=== PATIENT | female | born 1935 | race Caucasian/White ===

== ENCOUNTER → 2016-04-30 | Day surgery (SDC) | payer OTHER, MEDICARE ==
[~2016-04-30] MED LIST: DEXAMETHASONE 4 MG/ML VIAL ONE; GLUCAGON,HUMAN RECOMBINANT 1 MG VIAL ONE; GLYCOPYRROLATE 0.2 MG/1 ML VIAL ONE; HYDROCODONE/APAP 5/325 TAB ONE; HYDROCODONE/APAP 5/325 TAB PO PRN; IOTHALAMATE MEG (CONRAY) 50 ML VIAL IV ONE; LIDOCAINE 2% 5 ML SDV ONE; NEOSTIGMINE METHYLSULFATE 5 MG/5 ML SYR ONE; PHENYLEPHRINE HCL 100 MCG/ML SYR ONE; PROPOFOL 200 MG/20 ML VIAL ONE; PROPOFOL/EMULSION 500 MG/50 ML BOTTLE IV ONE; ROCURONIUM 50 MG/5 ML VIAL ONE; fentaNYL 100 MCG/2 ML INJ ONE; levOFLOXACIN 500 MG/DEXTROSE 100 ML IV ONE
--- NOTE | 2016-04-30 13:46 | GPN ---
DATE OF PROCEDURE: 04/30/2016 PROCEDURE: Colonoscopy with biopsy. INDICATION: The patient is a 80-year-old female who presents with complaints of lower quadrant abdo merlin pain as well as episodes of diarrhea. The patient is to have further evaluation. CONSENT: Risks, benefits, and alternatives of the procedure were discussed in great detail with the patient. Risks of infection, bleeding, perforation, sedation were discussed. All questions answer ed. Informed consent was obtained. MEDICATIONS: Propofol. Please see anesthesiology record for details. ESTIMATED BLOOD LOSS: Insignificant. COLONOSCOPIC EVALUATION: A rectal exam was performed, and no palpable masses were felt. The scope was introduced into the rectum and advanced to cecum where the ileocecal valve and appendiceal orifi ce were seen. The quality of prep was just fair with thick liquid stool chunks seen throughout the colon. The terminal ilium was intubated. It was normal in appearance. Biopsies were taken. The colonic mucosa was carefully examined on both insertion and withdrawal of the scope. Aggressive suctioning and flushing were utilized. No obvious polyps or mass lesions were seen. Random biopsi es were taken throughout the colon. IMPRESSION: 1. Normal terminal ileum, status post biopsy. 2. Normal colonoscopy, status post biopsy. 3. Just a fair prep. RECOMMENDATIONS: 1. Follow up on biopsy results. 2. Will need repeat surveillance depending upon results of prior colonoscopy. /[id number]/MODL
--- NOTE | 2016-04-30 14:57 | GPN ---
DATE OF PROCEDURE: 04/30/2016 PROCEDURE: Esophagogastroscopy with biopsy, endoscopic ultrasound. INDICATION: The patient is a 80-year-old female, who presents for evaluation of right upper quadran t abdominal pain, as well as abnormal imaging. She had a CT scan performed on 04/11/2016, and was n oted to have a dilated common bile duct, as well as a dilated main pancreatic duct. She presents fo r further evaluation. CONSENT: Risks, benefits, and alternatives of the procedure were discussed in great detail with the patient. Risk of infection, bleeding, perforation, sedation, and pancreatitis were discussed. All questions answered. Informed consent obtained. MEDICATIONS: General anesthesia. Please see anesthesiology record for details. ESTIMATED BLOOD LOSS: Insignificant. ESOPHAGOGASTRODUODENOSCOPY EXAMINATION: The Olympus upper endoscope was introduced via the mouth an d advanced to the esophagus. The proximal and mid esophagus were normal in appearance. The patient had an irregular Z-line. This may represent short-segment of [place] esophagus. A biopsy was take n. The stomach was entered and closely examined, including retroflexed views of the angularis, cardia a nd fundus. The mucosa was noted to have a medium-sized hiatal hernia. Mucosa of the whole stomach was erythematous, moderately erythematous in a patchy distribution, and biopsies were taken. Multiple sessile diminutive polyps were seen along the greater curvature, and biopsies were taken. The duodenal bulb and second portion of the duodenum were normal in appearance. Biopsies were taken to rule out celiac sprue. ENDOSCOPIC ULTRASOUND EXAMINATION: Olympus linear echoendoscope was inserted in the mouth to second portion of the duodenum. The pancreas was carefully examined from the uncinate process to thetail, where the spleen was seen. The pancreatic duct was dilated, and the head of the pancreas measured approximately 2.5 mm. The pancreatic duct wall was hyperechoic, and hypoechoic foci were noted thro ughout the pancreas. The common bile duct was seen merging with the pancreatic duct. No mass lesion was seen. The dista l common bile duct measured approximately 1.7 mm. There was debris noted. No stenosis was obviousl y noted. No obvious liver lesions were seen. No suspicious periportal or peripancreatic or perigastric nodes were appreciated. IMPRESSION: 1. No mass lesion seen. 2. Dilated pancreatic duct with right upper quadrant abdominal pain with radiation to back. Sphinc ter of Oddi dysfunction, and significant debris was also noted in the duct. We will proceed with en doscopic retrograde cholangiopancreatography. 3. Gastritis, status post biopsy. 4. , status post biopsy. 5. Irregular Z-line, status post biopsy. RECOMMENDATIONS: 1. Follow up on biopsy results. 2. Proceed with endoscopic retrograde cholangiopancreatography. /[id number]/MODL
--- NOTE | 2016-04-30 15:57 | GPN ---
DATE OF PROCEDURE: 04/30/2016 PROCEDURE: sphincterotomy, extraction of debris. INDICATION: Ms. Awad is a 80-year-old female who presents with complaints of right upper quadrant with radiation to the back as well as abnormal imaging which revealed a significantly dilated commo n bile duct. She was referred for further evaluation. CONSENT: Risks, benefits, and alternatives of the procedure were discussed in great detail with the patient. Risk of infection, bleeding, perforation, sedation complications were discussed. All quest ions were answered. Informed consent was obtained. MEDICATIONS: General anesthesia. Please see anesthesiology notes for details. 500 mg IV x1. Of note, patient does have an allergy to NSAIDs, and indomethacin could not be given. ESTIMATED BLOOD LOSS: Insignificant. DESCRIPTION OF PROCEDURE: ERCP exam: The Olympus duodenoscope entered into the mouth and advanced t o the 2nd portion of the duodenum. Using a [employer] sphincterotome and a 0.035 inch wire, t he wire was then attempted to be passed into the common bile duct. It did go into the pancreatic juan carlos t, where minimal injection was made. After several attempts, a wire was advanced into the common bile duct and intrahepatics. The patient had a significantly dilated common bile duct. The ampulla did grasp the sphincterotome consistent w ith ampullary stenosis. A 1 cm biliary sphincterotomy was performed, and a balloon sweep was made wi th a 12 balloon with extraction of debris. IMPRESSION: 1. 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 2. Extraction of debris. RECOMMENDATIONS: 1. Clear liquid diet until tomorrow. 2. Ciprofloxacin 500 mg p.o. twice daily x3 days. 3. Follow up in the office in 6 weeks. /[id number]/MODL
== END | disposition home or self-care (01) ==
LOC: FSGY 10:14
PROVIDERS: ATTEND Internal Medicine Gastroenterology
DX: K29.70 Gastritis, unspecified, without bleeding (principal); K83.8 Other specified diseases of biliary tract; R10.11 Right upper quadrant pain; K21.9 Gastro-esophageal reflux disease without esophagitis; F11.20 Opioid dependence, uncomplicated
CPT/HCPCS: J1100; J1610; J1956; J2370; J2704; J2710; J3010; Q9961

== ENCOUNTER → 2017-11-26 | Outpatient (CLI) | payer OTHER, MEDICARE ==
[~2017-11-26] MED LIST changes: -DEXAMETHASONE 4 MG/ML VIAL ONE; -GLUCAGON,HUMAN RECOMBINANT 1 MG VIAL ONE; -GLYCOPYRROLATE 0.2 MG/1 ML VIAL ONE; -HYDROCODONE/APAP 5/325 TAB ONE; -HYDROCODONE/APAP 5/325 TAB PO PRN; +IOPAMIDOL (ISOVUE-M 200) 20 ML VIAL ONE; -IOTHALAMATE MEG (CONRAY) 50 ML VIAL IV ONE; +LIDOCAINE 1% 300 MG/30 ML SDV ONE; -LIDOCAINE 2% 5 ML SDV ONE; -NEOSTIGMINE METHYLSULFATE 5 MG/5 ML SYR ONE; -PHENYLEPHRINE HCL 100 MCG/ML SYR ONE; -PROPOFOL 200 MG/20 ML VIAL ONE; -PROPOFOL/EMULSION 500 MG/50 ML BOTTLE IV ONE; -ROCURONIUM 50 MG/5 ML VIAL ONE; -fentaNYL 100 MCG/2 ML INJ ONE; -levOFLOXACIN 500 MG/DEXTROSE 100 ML IV ONE
== END ==
LOC: FIMAGING 13:30
PROVIDERS: ATTEND Internal Medicine Geriatric Medicine
DX: R07.81 Pleurodynia (principal); R10.9 Unspecified abdominal pain; G89.29 Other chronic pain; Z98.890 Other specified postprocedural states
CPT/HCPCS: 71250; Q9966